=== PATIENT | female | born 1960 | race Caucasian/White ===

== ENCOUNTER 2024-01-11 12:30 | Inpatient (IN) | payer BC, MEDICAID ==
[~2024-01-11] VITALS: Ht 147.3 cm; Wt 65.4 kg
[~2024-01-11 12:30] MED LIST: ONDA-144 PO; TRAM-297 PO
[2024-01-11] MEDS: ASPirin 325 MG TAB PO ONE (14:45)
--- NOTE | 2024-01-11 15:15 | ED.PDOC ---
HPI Comments 62-year-old female patient with past medical history of hypertension, AAA, gastritis, moderate AR presented with complaints of chest pain and high blood pressure. She has been having chest pain for last five days, which she describes as radiating to the back and right shoulder, but for last two days pain became severe. She describes pain as chest tightness, not increased on inspiration, mildly relieved by rest. Patient went to see PCP today, PCP's office patient's systolic blood pressure was 179 and was referred to the ED. patient is currently mentioning 6/10 chest pain. She denied any shortness of breath on rest but mentions she has been having fatigue after doing some physical work. Past medical history Hypertension, AAA, gastritis, moderate AR, plantar fasciitis, carpal tunnel syndrome, tarsal tunnel syndrome Medication history Lisinopril, tramadol, Percocet Past surgical history Gastric bypass, tummy tuck, cholecystectomy, partial hysterectomy, appendectomy Allergic history Dilaudid Social history Denied alcohol, smoking, marijuana, any other drugs intake Family history Noncontributory Review of system As mentioned in the HPI Examination General Appearance: Alert, Oriented X3, Cooperative, No acute distress HEENT: EOMI Respiratory: Clear to auscultation, Normal air movement Cardiovascular: Regular rate, Normal S1, Normal S2 Abdominal: Normal bowel sounds Extremities: No cyanosis, No edema, Normal pulses, No tenderness/swelling Skin: No rashes, No breakdown Neuro: Normal speech and tone Chief Complaint: Chest Pain Time Seen by MD: 14:03 Reviewed Notes: Nurses Notes, Medications, Allergies Allergies: Coded Allergies: Codeine (Verified Allergy, Unknown, 02/17/15) Penicillins (Verified Allergy, Unknown, 02/17/15) Hydromorphone (Verified Adverse Reaction, Mild, ITCHINESSS, 02/26/15) User: Gilberto Blevins RN Date: 02/20/15 04:00 Type: Nurse Notes PATIENT COMPLAINED OF ITCHINESS. PAGED HOSPITALIST AND RECEIVED ORDERS TO DC DILAUDID AND ORDER BENEDRYL 50MG. ADMINISTERED TO PATIENT. WILL CONTINUE TO MONITOR. Home Meds Reported Medications Ondansetron (Zofran) 4 Mg Tab, 1 TAB PO Q6HR, #20 TAB 02/18/15 Tramadol Hcl (Ultram) 50 Mg Tab, 1 TAB PO Q6HR, #30 TAB 02/18/15 Mode of Arrival: Ambulatory Was a procedure done? Was a procedure done?: No CP Differential Dx Differential Diagnosis: Other (Myocardial infarction, aortic dissection, chest wall pain, gastritis, musculoskeletal pain, pericarditis) Differential Diagnosis: HTN Essential, HTN Accelerated Differential Diagnosis: Aortic dissection, Chest Wall Pain, Costochondritis, Esophageal reflux/spasm, Gastritis, Myocardial Infarction, Pericarditis, Pneumonia, Pulmonary Embolus X-Ray, Labs, Meds, VS Vital Signs Date Time Temp Pulse Resp B/P (MAP) Pulse Ox O2 Delivery O2 Flow Rate FiO2 01/11/24 20:07 144/67 01/11/24 19:49 70 16 144/67 (92) 99 01/11/24 19:49 70 16 99 Room Air* 0 21 01/11/24 17:05 97.9 64 16 129/61 (83) 99 97.9 01/11/24 15:43 143/54 01/11/24 15:37 57 01/11/24 15:31 61 01/11/24 15:31 98.1 61 16 146/54 (84) 99 98.1 01/11/24 13:35 58 01/11/24 12:38 63 01/11/24 12:30 97.3 64 20 133/55 (81) 97 Lab Test 01/11/24 15:35 01/11/24 12:49 Range/Units Troponin I High Sensitivity 5 6 </=34 ng/L White Blood Count 6.1 4.4-10.8 10^3/uL Red Blood Count 4.43 4.0-5.20 10^6/uL Hemoglobin 14.1 12.2-16.2 g/dL Hematocrit 41.2 36.0-46.0 % Mean Corpuscular Volume 93.1 80.0-100.0 fL Mean Corpuscular Hemoglobin 32.0 28.0-32.0 pg Mean Corpuscular Hemoglobin Concent 34.3 32.0-36.0 g/dL Red Cell Distribution Width 13.8 11.8-14.3 % Platelet Count 309 140-450 10^3/uL Mean Platelet Volume 9.2 6.9-10.8 fL Neutrophils (%) (Auto) 53.0 37.0-80.0 % Lymphocytes (%) (Auto) 35.1 10.0-50.0 % Monocytes (%) (Auto) 7.1 0.0-12.0 % Eosinophils (%) (Auto) 4.3 0.0-7.0 % Basophils (%) (Auto) 0.5 0.0-2.0 % Neutrophils # (Auto) 3.2 1.6-8.6 10 ^3/uL Lymphocytes # (Auto) 2.1 0.4-5.4 10 ^3/uL Monocytes # (Auto) 0.4 0-1.3 10 ^3/uL Eosinophils # (Auto) 0.3 0-0.8 10 ^3/uL Basophils # (Auto) 0 0-0.2 10 ^3/uL Nucleated Red Blood Cells 0.2 % Sodium Level 137 136-145 mmol/L Potassium Level 4.8 3.5-5.1 mmol/L Chloride Level 105 98-107 mmol/L Carbon Dioxide Level 26 20-31 mmol/L Anion Gap 6 5-15 Blood Urea Nitrogen 24 H 9-23 mg/dL Creatinine 1.04 H 0.550-1.02 mg/dL Glomerular Filtration Rate Calc 60 >90 mL/min BUN/Creatinine Ratio 23.1 H 10.0-20.0 Serum Glucose 93 74-106 mg/dL Calcium Level 9.7 8.7-10.4 mg/dL Total Bilirubin 0.7 0.2-1.0 mg/dL Aspartate Amino Transferase (AST) 38 13-40 U/L Alanine Aminotransferase (ALT) 47 H 7-40 U/L Alkaline Phosphatase 157 H 46-116 U/L B-Type Natriuretic Peptide 9.95 0-100 pg/mL Total Protein 7.2 5.7-8.2 g/dL Albumin 4.4 3.2-4.8 g/dL Current Medications Medications (Trade) Dose Ordered Sig/Ana Route Start Time Stop Time Status Last Admin Aspirin 325 mg ONCE ONCE PO 01/11/24 14:45 01/11/24 14:46 DC 01/11/24 14:45 Nitroglycerin (Ntrostat Sublingual) 0.4 mg ONCE ONCE SL 01/11/24 14:45 01/11/24 14:46 DC 01/11/24 15:43 Acetaminophen/ Hydrocodone Bitart ([place] 5/325MG Tab) 1 tab ONCE ONCE PO 01/11/24 20:00 01/11/24 20:01 DC 01/11/24 20:04 Time of 1ST Reevaluation: 16:12 (Patient mentioned chest pain has improved, now its 02/28. Chest x-ray shows no widened mediastinum.Blood pressure in both arms were similar no differential blood pressure.) Reevaluation 1ST: Improved Patient Education/Counseling: Diagnosis, Treatment Family Education/Counseling: No Family Present Comments Patient presented with the chest pain radiating to the back. workup was init iated. Patient was given: Aspirin 325 mg once, 0.4 mg sublingual nitroglycerin Patient was complaining of severe headache. Head CT did not show any acute abnormalities And patient was given pain medication Patient has been observed in the ED adequate length of time to insure improvement/stability. patient was admitted to the medicine team for further evaluation and treatment of their presentation. All the reports of any imaging studies that were ordered by myself were reviewed by myself. Departure 1 Departure Time of Disposition: 14:59 Impression: Primary Impression: Chest pain Additional Impression: Hypertension Disposition: 09 ADMITTED INPATIENT Admit to: [facility] Condition: Guarded Critical Care Note Critical Care Time?: No Heart Score Heart Score: Heart Score Response (Comments) Value History Moderate Suspicious 1 EKG Normal 0 Age 45-64 1 Risk Factors 1 or 2 risk factors 1 Troponin Normal limit 0 Total 3 MARGO WOLFF RESIDENT Jan 11, 2024 15:15
[2024-01-11] MEDS: NITROGLYCERIN 0.4 MG SL TAB SL ONE (15:30)
[2024-01-11 15:32] LABS: Basophils # (auto) 0 10 ^3/uL (0-0.2); Basophils % (auto) 0.5 % (0.0-2.0); Eosinophils # (auto) 0.3 10 ^3/uL (0-0.8); Eosinophils % (auto) 4.3 % (0.0-7.0); Hematocrit 41.2 % (36.0-46.0); Hemoglobin 14.1 g/dL (12.2-16.2); Lymphocytes # (auto) 2.1 10 ^3/uL (0.4-5.4); Lymphocytes % (auto) 35.1 % (10.0-50.0); Mean Corpuscular Hgb Conc. 34.3 g/dL (32.0-36.0); Mean Corpuscular Volume 93.1 fL (80.0-100.0); Monocytes # (auto) 0.4 10 ^3/uL (0-1.3); Monocytes % (auto) 7.1 % (0.0-12.0); Neutrophils # (auto) 3.2 10 ^3/uL (1.6-8.6); Nucleated Red Blood Cells % 0.2 %; Platelet Count (auto) 309 10^3/uL (140-450); Red Blood Cells 4.43 10^6/uL (4.0-5.20); Red Cell Distribution Width 13.8 % (11.8-14.3); White Blood Cell 6.1 10^3/uL (4.4-10.8)
[2024-01-11 15:49] LABS: Alanine Aminotransferase 47 U/L (7-40); Albumin 4.4 g/dL (3.2-4.8); Alkaline Phosphatase 157 U/L (46-116); Anion Gap 6 (5-15); Aspartate Aminotransferase 38 U/L (13-40); BUN/Creatinine Ratio 23.1 (10.0-20.0); Blood Urea Nitrogen 24 mg/dL (9-23); Calcium 9.7 mg/dL (8.7-10.4); Carbon Dioxide 26 mmol/L (20-31); Chloride 105 mmol/L (98-107); Potassium 4.8 mmol/L (3.5-5.1); Sodium 137 mmol/L (136-145)
[2024-01-11 15:50] LABS: Bilirubin, Total 0.7 mg/dL (0.2-1.0); Total Protein 7.2 g/dL (5.7-8.2)
[2024-01-11 15:53] LABS: Glucose 93 mg/dL (74-106)
--- NOTE | 2024-01-11 16:07 | DVH ---
CHEST RADIOGRAPH Indication: chest pain Technique: Single frontal view of the chest was obtained Comparison: None FINDINGS: Lines and Tubes: None Lungs: No focal consolidation. Pleura: No effusion. No pneumothorax. Cardiomediastinal contours: Unremarkable Bones: No acute osseous abnormality. IMPRESSION: 1. No acute cardiopulmonary disease. HS:Y
[2024-01-11 19:49] VITALS: PULSE 70; RESP 16; O2SAT 99
[2024-01-11] MEDS: ACETAMINOPHEN 325 MG TAB PO ONE (19:53)
[2024-01-11] MEDS: HYDROcodone-ACET 5/325MG TAB PO ONE (20:04)
--- NOTE | 2024-01-11 20:51 | DVH ---
Procedure: CT HEAD WITHOUT CONTRAST Study Date and Requested Time: 01/11/2024 08:21 PM History: headache Comparison: None Dose: CTDI: 51.85 mGy DLP: 918.28 mGycm Technique: Multiplanar images obtained through the brain without intravenous contrast. Findings: [id number] frontal lobe predominant brain atrophy with associated mild prominence of the extra- axial CSF space. Mild chronic small vessel ischemic changes. No hemorrhages, masses, mass effect, midline shift, herniation or cytotoxic edema following a large v ascular territory. No intra-axial or extra-axial fluid collections. No evidence of hydrocephalus. The basal cisterns are patent. The pituitary gland, sella and parasellar regions are unremarkable. The cerebellar tonsils are in nor mal position. The cerebellum is unremarkable. The orbits and globes are unremarkable. The paranasal sinuses and mastoids are clear. There are no wo rrisome calvarial lesions. 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 Impression: No evidence of acute intracranial abnormality.
[2024-01-11] MEDS ORDERED: ACETAMINOPHEN 325 MG TAB PO PRN (22:00)
[2024-01-11] MEDS ORDERED: NITROGLYCERIN 0.4 MG SL TAB SL PRN (22:00)
[2024-01-11] MEDS ORDERED: MORPHINE SULFATE INJ 2 MG/ml SYRG IV PRN (22:00)
[2024-01-11 22:57] VITALS: PULSE 64
[2024-01-11] MEDS: SODIUM CHLORIDE 0.9% 1,000 ML IV SCH (22:57)
[2024-01-11] MEDS: ONDANSETRON HCL 4 MG/2 ML VIAL IV PRN (23:35)
[2024-01-11] MEDS: MORPHINE SULFATE INJ 2 MG/ml SYRG IV PRN (23:37)
[2024-01-11] MEDS: IOHEXOL 350 MG/ML 100ML IJ ONE (23:39)
[2024-01-12] VITALS (10 sets, daily range): BP systolic 138–166; BP diastolic 51–71; PULSE 52–85; RESP 16–20; TEMP 97.6–98.2; O2SAT 95–100
--- NOTE | 2024-01-12 00:39 | DVH ---
Exam: CT CT ANGIO ABD AORTA W RUN OFF History: abdominal aneurysm Comparison Study: None available at time of dictation. Technique: Multidetector spiral CT of the abdomen and pelvis was performed from lung bases to pubic s ymphysis. Intravenous contrast was administered during this examination. Portal venous imaging was obtained. Axial, coronal and sagittal multiplanar reformats were performed by the technologist on a separate workstation. Radiation Dose : 1. Abdomen/Pelvis: CTDIvol 9.3 mGy, DLP 1180 mGy*cm. Findings: Lung Bases: No acute or significant lung base finding. Normal heart size. No pleural or pericardial effusion. Liver: The liver is normal in size. No focal lesions. Normal hepatic vascular enhancement. Gallbladder and Biliary Tree: Gallbladder is surgically absent. Spleen: Unremarkable Pancreas: The pancreas is normal in appearance without focal lesions or abnormal enhancement. Adrenal Glands: Unremarkable Kidneys: Kidneys demonstrate normal symmetric enhancement without focal lesions, calculi or hydroneph rosis. Bladder: Unremarkable Bowel: Surgical changes of the stomach. Small bowel and colon are normal in caliber and distribution. The appendix is not visualized; however, no secondary findings of acute appendicitis identified. Ascites: Absent Lymphadenopathy: No mesenteric, retroperitoneal or periportal lymphadenopathy. Abdominal Wall and Mesentery: Unremarkable. Vasculature: Infrarenal abdominal aortic saccular aneurysm measuring 2.9 cm with associated mural thr ombus. The bilateral lower extremity runoff demonstrates no significant stenosis or occlusion up to t he level of the ankles. The vasculature distal to this point is poorly evaluated due to contrast bolu s timing. Limited evaluation of the vasculature of the level of the right knee due to streaking artif act. Pelvic Organs: Unremarkable Musculoskeletal: No aggressive focal bony lesions, acute fractures or dislocation. Status post total right knee arthroplasty with intact appearing orthopedic hardware. IMPRESSION: Infrarenal saccular abdominal aortic aneurysm measuring up to 2.9 cm with associated mural thrombus. No evidence of contrast extravasation into the mural thrombus. No periaortic inflammatory changes.
--- NOTE | 2024-01-12 02:17 | DVHHPRES ---
History of Present Illness Resident Creating Document: JOHNNY YANG RESIDENT Reason for Visit: chest pain and headaches History of Present Illness 63-year-old female patient with past medical history of abdominal aortic aneurysm, hypertension who presents to the ER with chest pain and severe headache for evaluation. The chest pain began 5 days ago, initially described as 10/10 in intensity. Over the subsequent days the pain has progressively decreased and is now rated as 3/10 intensity. She describes the pain as sharp, type and radiating to the back and right shoulder. Not worsened by inspiration. The pain slightly improved with rest and has been partially relieved by aspirin and nitroglycerin. The patient denies shortness of breath, palpitations or syncope but reports fatigue. 2 days ago the chest pain basically worsened in severity prompting further evaluation. She also describes a severe headache 10/10 intensity, consistent with her history of migraines. The headache has not been associated with neurological deficits or visual changes. On admission the patient's blood pressure was 166/67 mmHg but it has since stabilized in the 140s with management. Troponins were negative chest x-ray were negative CT scan was negative. CT angiogram of the chest identified an infrarenal saccular abdominal aortic aneurysm measuring 2.9 cm with an associated thrombus but no evidence of dissection, periaortic inflammation or contrast extravasation. Past Surgical History: Other Family History: None Smoke: No ALCOHOL: none Drugs: None Domestic Violence: Neg Review of Systems Review of Systems Constitutional: No: Fever, Chills, Sweats, Weakness, Malaise, Other Eyes: No: Pain, Vision change, Conjunctivae inflammation, Eyelid inflammation, Other, Redness ENT: No: Ear pain, Ear discharge, Nose pain, Nose discharge, Nose congestion, Mouth pain, Mouth swelling, Throat pain, Throat swelling, Other Respiratory: No Wheezing, Hemoptysis, Pleuritic Pain, Sputum, Wheezing, Other Cardiovascular: Yes: Chest pain 3/10 No: Orthopnea, Paroxysmal Noc. Dyspnea, Edema, Lt Headedness, Other Gastrointestinal: No: Nausea, Vomiting, Abdominal Pain, Diarrhea, Constipation, Melena, Hematochezia, Other Musculoskeletal: No: other, neck pain, shoulder pain, arm pain, back pain, hand pain, leg pain, foot pain Neurological:; severe headaches 10/10 No: Weakness, Numbness, Incoordination, Change in speech, Confusion, Seizures Allergies: Coded Allergies: Codeine (Verified Allergy, Unknown, 02/17/15) Penicillins (Verified Allergy, Unknown, 02/17/15) Hydromorphone (Verified Adverse Reaction, Mild, ITCHINESSS, 02/26/15) User: Gilberto Blevins RN Date: 02/20/15 04:00 Type: Nurse Notes PATIENT COMPLAINED OF ITCHINESS. PAGED HOSPITALIST AND RECEIVED ORDERS TO DC DILAUDID AND ORDER BENEDRYL 50MG. ADMINISTERED TO PATIENT. WILL CONTINUE TO MONITOR. Medications Current Medications Medications Dose Ordered Sig/Ana Route Start Time Stop Time Status Last Admin Dose Admin Sodium Chloride 1,000 ml @ 60 mls/hr [id number] IV 01/11/24 22:00 01/11/24 22:57 60 MLS/HR Ondansetron HCl 4 mg Q4HP PRN IV 01/11/24 22:00 01/11/24 23:35 4 MG Acetaminophen 650 mg Q6HP PRN PO 01/11/24 22:00 Morphine Sulfate 2 mg Q4HPRN PRN IV 01/11/24 22:00 01/11/24 23:37 2 MG Nitroglycerin 0.4 mg Q5MINP PRN SL 01/11/24 22:00 Morphine Sulfate 2 mg Q30M PRN IV 01/11/24 22:00 Exam Vital Signs Vital Signs Date Time Temp Pulse Resp B/P (MAP) Pulse Ox O2 Delivery O2 Flow Rate FiO2 01/12/24 00:38 97.8 85 16 166/67 (100) 100 97.8 01/12/24 00:00 Room Air* 0 21 Exam Examination General Appearance: Alert, Oriented X3, Cooperative, severe acute distress HEENT: EOMI Respiratory: Clear to auscultation, Normal air movement Cardiovascular: Regular rate, Normal S1, Normal S2 Abdominal: Normal bowel sounds Extremities: No cyanosis, No edema, Normal pulses, No tenderness/swelling Skin: No rashes, No breakdown Neuro: Normal gait, Normal speech, Strength at 5/5 X4 ext, Normal tone, Sensation intact, Cranial nerves 3-12 NL, Reflexes 2+ Psych/Mental Status: Mental status NL, Mood NL Labs/Xrays Labs Test 01/11/24 15:35 01/11/24 12:49 Range/Units Troponin I High Sensitivity 5 </=34 ng/L White Blood Count 6.1 4.4-10.8 10^3/uL Red Blood Count 4.43 4.0-5.20 10^6/uL Hemoglobin 14.1 12.2-16.2 g/dL Hematocrit 41.2 36.0-46.0 % Mean Corpuscular Volume 93.1 80.0-100.0 fL Mean Corpuscular Hemoglobin 32.0 28.0-32.0 pg Mean Corpuscular Hemoglobin Concent 34.3 32.0-36.0 g/dL Red Cell Distribution Width 13.8 11.8-14.3 % Platelet Count 309 140-450 10^3/uL Mean Platelet Volume 9.2 6.9-10.8 fL Neutrophils (%) (Auto) 53.0 37.0-80.0 % Lymphocytes (%) (Auto) 35.1 10.0-50.0 % Monocytes (%) (Auto) 7.1 0.0-12.0 % Eosinophils (%) (Auto) 4.3 0.0-7.0 % Basophils (%) (Auto) 0.5 0.0-2.0 % Neutrophils # (Auto) 3.2 1.6-8.6 10 ^3/uL Lymphocytes # (Auto) 2.1 0.4-5.4 10 ^3/uL Monocytes # (Auto) 0.4 0-1.3 10 ^3/uL Eosinophils # (Auto) 0.3 0-0.8 10 ^3/uL Basophils # (Auto) 0 0-0.2 10 ^3/uL Nucleated Red Blood Cells 0.2 % Sodium Level 137 136-145 mmol/L Potassium Level 4.8 3.5-5.1 mmol/L Chloride Level 105 98-107 mmol/L Carbon Dioxide Level 26 20-31 mmol/L Anion Gap 6 5-15 Blood Urea Nitrogen 24 H 9-23 mg/dL Creatinine 1.04 H 0.550-1.02 mg/dL Glomerular Filtration Rate Calc 60 >90 mL/min BUN/Creatinine Ratio 23.1 H 10.0-20.0 Serum Glucose 93 74-106 mg/dL Calcium Level 9.7 8.7-10.4 mg/dL Total Bilirubin 0.7 0.2-1.0 mg/dL Aspartate Amino Transferase (AST) 38 13-40 U/L Alanine Aminotransferase (ALT) 47 H 7-40 U/L Alkaline Phosphatase 157 H 46-116 U/L B-Type Natriuretic Peptide 9.95 0-100 pg/mL Total Protein 7.2 5.7-8.2 g/dL Albumin 4.4 3.2-4.8 g/dL Assessment/Plan Assessment/Plan #Chest pain rule out ACS, rule out aortic dissection -CT angio was negative for aortic dissection,, troponins negative. Therefore likely musculoskeletal -continue aspirin for vascular protection -monitor blood pressure closely , occult blood pressure less than 130/80 mmHg -pain control with acetaminophen #Abdominal aortic aneurysm (stable, 2.9 cm) -no evidence of rupture. However the presence of thrombus increases the risk of embolization. -consider repeat CT scan/ultrasound in 6-12 months to monitor for progression -referral to vascular surgery for further assessment if aneurysm and large more than 5 cm or symptomatic. #Severe headache likely migraine/hypertensive urgency Acetaminophen 650 mg p.o. Morphine p.r.n. #Hypertension -Elevated blood pressure contributes to vascular risk, including aneurysm progression -Optimize antihypertensive regimen -Consider starting a beta-marcos or ARB's -Goal blood pressure less than 130/80 -Monitor renal function and electrolytes regularly given her vascular history #Elevated alkaline phosphatase, mild elevation -monitor # overweight, BMI 29.4 kilograms/m2 Lifestyle modification counseling, encourage improvement in dietary habits and physical activity Case discussed with Dr. Guevara Goals of care discussed with the patient for 43 minutes Code status: Full code Plan discussed with: Patient My Orders Orders - JOHNNY YANG RESIDENT Procedure Category Date Status Time Admit ADMIT 01/11/24 Transmitted 21:57 Allergies JOAQUIM 01/11/24 In Process 21:57 Code Status CODE 01/11/24 Transmitted 21:57 2 Gm Sodium Diet DIET 01/12/24 Transmitted Breakfast Sodium Chloride 0.9% PHA 01/11/24 In Process 22:00 Ondansetron Hcl PHA 01/11/24 In Process (Zofran) 22:00 Complete Blood Count LAB 01/12/24 Logged 04:00 Comprehensive LAB 01/12/24 Logged Metabolic Panel 04:00 Cardiac DIET 01/12/24 Transmitted Diet-2gna,Lofat,Lochol Breakfast Echo 2d Mode Cardiac US 01/11/24 Logged DOP 21:57 Acetaminophen Tablet PHA 01/11/24 In Process (Tylenol Tablet) 22:00 Morphine Sulfate PHA 01/11/24 In Process Injection 22:00 Nitroglycerin PHA 01/11/24 In Process Sublingual (Ntrostat 22:00 Morphine Sulfate PHA 01/11/24 In Process Injection 22:00 Oxygen By Nasal RT 01/11/24 Transmitted Cannula 21:57 Stat Ekg For Chest [facility] 01/11/24 In Process Pain 21:57 Notify Of Changes [facility] 01/11/24 In Process From Base 21:57 Electronic Warfare Specialist For [facility] 01/11/24 In Process 24 Hours 21:57 Emergency Dysrhythmia [facility] 01/11/24 In Process Protocol 21:57 Rhythm Strips Once [facility] 01/11/24 In Process Every Shift 21:57 Ct Angio Abd Aorta W CT 01/11/24 Resulted Run Off 23:15 Echo 2d Mode Cardiac US 01/11/24 Logged DOP 23:15 Date of Service: Jan 11, 2024 Billing Provider: DALIA GUEVARA MD Common Visit Codes: [id number] INP/OBS CARE (HIGH) JOHNNY YANG RESIDENT Jan 12, 2024 02:17 DALIA GUEVARA MD Jan 12, 2024 08:28
[2024-01-12 03:27] LABS: Urine Bacteria None Seen /hpf (None Seen)
[2024-01-12 03:31] LABS: Urine Blood Negative /uL (Negative); Urine Clarity Clear (Clear); Urine Protein, UAD Negative (Negative); Urine Specific Gravity 1.042 (1.001-1.035); Urine Urobilinogen Normal (Negative); Urine WBC <1 /hpf (0 - 5)
[2024-01-12] MEDS: MORPHINE SULFATE 4 MG/ML SYR/VIAL ONE (03:53)
[2024-01-12 04:02] LABS: Urine Color STRAW (Yellow)
[2024-01-12 06:55] LABS: Basophils # (auto) 0 10 ^3/uL (0-0.2); Basophils % (auto) 0.4 % (0.0-2.0); Eosinophils # (auto) 0.2 10 ^3/uL (0-0.8); Eosinophils % (auto) 2.5 % (0.0-7.0); Hematocrit 37.5 % (36.0-46.0); Hemoglobin 12.6 g/dL (12.2-16.2); Lymphocytes % (auto) 28.9 % (10.0-50.0); Mean Corpuscular Hemoglobin 31.7 pg (28.0-32.0); Mean Corpuscular Hgb Conc. 33.6 g/dL (32.0-36.0); Mean Corpuscular Volume 94.5 fL (80.0-100.0); Monocytes # (auto) 0.5 10 ^3/uL (0-1.3); Monocytes % (auto) 6.8 % (0.0-12.0); Neutrophils # (auto) 4.2 10 ^3/uL (1.6-8.6); Neutrophils % (auto) 61.4 % (37.0-80.0); Platelet Count (auto) 259 10^3/uL (140-450); Red Blood Cells 3.97 10^6/uL (4.0-5.20); Red Cell Distribution Width 13.5 % (11.8-14.3); White Blood Cell 6.8 10^3/uL (4.4-10.8)
[2024-01-12 07:01] LABS: Alanine Aminotransferase 39 U/L (7-40); Albumin 3.9 g/dL (3.2-4.8); Alkaline Phosphatase 130 U/L (46-116); Anion Gap 7 (5-15); Aspartate Aminotransferase 28 U/L (13-40); Bilirubin, Total 0.6 mg/dL (0.2-1.0); Calcium 9.1 mg/dL (8.7-10.4); Carbon Dioxide 24 mmol/L (20-31); Chloride 111 mmol/L (98-107); Glucose 93 mg/dL (74-106); Potassium 4.2 mmol/L (3.5-5.1); Sodium 142 mmol/L (136-145); Total Protein 6.4 g/dL (5.7-8.2)
[2024-01-12 07:10] LABS: BUN/Creatinine Ratio 14.7 (10.0-20.0); Blood Urea Nitrogen 11 mg/dL (9-23)
[2024-01-12] MEDS: NIFEdipine ER 30 MG TAB PO ONE (08:30)
[2024-01-12] MEDS: ATORVASTATIN 20 MG TAB PO ONE (08:30)
[2024-01-12 08:49] LABS: Amphetamine Screen, Urine Neg (NEGATIVE); Barbiturate Scree,Urine Neg (NEGATIVE); Benzodiazephine Screen, Urine Neg (NEGATIVE); Cocaine Screen, Urine Neg (NEGATIVE); Opiate Scree,Urine Neg (NEGATIVE)
[2024-01-12 08:50] LABS: Cannabinoid Screen, Urine Neg (NEGATIVE); Phencyclidine Screen, Urine Neg (NEGATIVE)
[2024-01-12] MEDS: PROPRANOLOL HCL 20 MG TAB PO SCH (10:00)
[2024-01-12] MEDS ORDERED: CARVEDILOL 3.125 MG TAB PO SCH (10:00)
[2024-01-12] MEDS: OXYCODONE W/ ACETAMINOPHEN 5/325MG TABLET PO PRN (15:20)
[2024-01-12] MEDS ORDERED: PERCOT PO (20:30)
[2024-01-12] MEDS: CARVEDILOL 3.125 MG TAB PO SCH (21:47)
--- NOTE | 2024-01-12 22:10 | DVHPNRES ---
Progress Note Date Seen: Jan 12, 2024 Resident Creating Document: KIERRA CRONIN RESIDENT Has the PT tested + for MRSA If YES, has PT been informed?: No Medical Necessity Reason Pt with a Central, PICC or Fol: No Subjective Review of Systems This is a 63-year-old female patient with a pmhx significant for abdominal aortic aneurysm( diagnosed in 2008), hypertension ( not compliant with her meds) and COVID who presents to the ER with chest pain and severe headache for evaluation. The pain was so severe that it woke her up from her sleep. The chest pain [facility] It was initially described as 10/10 in intensity. Over the subsequent days, the pain had progressively decreased and is now rated as 3/10 intensity. She describes the pain as sharp, type and radiating to the back and right shoulder. Not worsened by inspiration. The pain slightly improved with rest and has been partially relieved by aspirin and nitroglycerin. The patient denies shortness of breath, palpitations or syncope but reports fatigue. Two days ago the chest pain basically worsened in severity prompting further evaluation. She also described persistent headache consistent. The headache has not been associated with neurological deficits or visual changes. On admission the patient's bp: pphr952/67 mmHg. Troponins were negative chest x- ray were negative, and CT scan was negative. CT angiogram of the chest identified an infrarenal saccular abdominal aortic aneurysm measuring 2.9 cm with an associated thrombus but no evidence of dissection, periaortic inflammation or contrast extravasation. Of note, the patient mentioned that when the aneurysm was forced discovered the side was 2.7. Past Surgical History: right thyroidectomy 2016,patholgy: benign Family History: None Smoke: 5 dharmesh ALCOHOL: none Drugs: None Domestic Violence: Neg Constitutional: Denies fever no chil; but feeling of malaise HEENT: Headache, no Visual changes ear pain, ear discharges, conjunctivitis, nasal discharge throat pain Cardiovascular: Denies chest pain, palpitation, orthopnea, PND, or pedal edema Respiratory: Denies shortness of breath, cough cough, sputum production, hemoptysis, GI: Denies abdominal pain, nausea, vomiting, diarrhea, hematemesis, hematochezia, : Denies frequency, urgency, hematuria, No pulsating masses Endocrine: Denies unintentional weight gain or weight loss, feeling of hot flashes, Sudhakar: Denies easy bruising, bleeding disorders, epistaxis Musculoskeletal: Spinal /back pains. No muscle aches Psych: No evidence of depression, ryan, suicidal ideation Objective vital signs Vital Sign Date Time Temp Pulse Resp B/P (MAP) Pulse Ox O2 Delivery O2 Flow Rate FiO2 01/12/24 20:31 60 18 138/57 01/12/24 14:00 98.0 97 98.0 01/12/24 08:00 Room Air* 0 21 medications Current Medications Medications Dose Ordered Sig/Ana Route Start Time Stop Time Status Last Admin Dose Admin Ondansetron HCl 4 mg Q4HP PRN IV 01/11/24 22:00 01/11/24 23:35 4 MG Acetaminophen 650 mg Q6HP PRN PO 01/11/24 22:00 Morphine Sulfate 2 mg Q4HPRN PRN IV 01/11/24 22:00 01/12/24 20:31 2 MG Nitroglycerin 0.4 mg Q5MINP PRN SL 01/11/24 22:00 Morphine Sulfate 2 mg Q30M PRN IV 01/11/24 22:00 Nifedipine 30 mg DAILY PO 01/13/24 10:00 Atorvastatin Calcium 80 mg HS PO 01/13/24 22:00 Oxycodone/ Acetaminophen 2 tab Q6HP PRN PO 01/12/24 13:30 01/12/24 15:20 2 TAB Carvedilol 6.25 mg Q12HR PO 01/12/24 22:00 Examination General examination- Mild acute distress HEENT: PEERLA, no acute nasal discharge Chest: S1-S2 audible, rate and rhythm regular, no murmur Lung: CTAB, no wheeze or rhonchi Abdomen: Nondistend, BS+, nontenderness, no organomegaly Musculoskeletal: Spinal tenderness, generalized body tenders Lower extremity: no leg edema Neurological: cranial nerves intact, no acute dysarthria or dysphagia Psychiatry-- Normal mood and affect Skin- no acute rash or purpura laboratory and microbiology Laboratory Tests 01/12/24 06:13 Test 01/12/24 06:13 Range/Units Serum Glucose 93 74-106 mg/dL Problem List/Assessment/Plan Problem List/Assessment/Plan Chest pain rule out ACS --> History of abdominal aortic aneurysm increasing in size -CT angio was negative for aortic dissection, troponins negative. likely musculoskeletal -continue aspirin for vascular protection -monitor blood pressure closely , occult blood pressure less than 130/80 mmHg Hypertension Urgency Blood pressure:166/67--> 133/57 Goal: SBP< 130/80 Monitor blood pressure closely Nifedipine 30mg daily Carvediol 6.25mg BID We will add nifedipine 30 mg tonight as the BP is still elevated Monitor blood pressure if he does not go down by tomorrow morning then been well do nifedipine 90 mg daily Severe headache likely migraine -->Acetaminophen 650 mg p.o. --> the headache my be contributing to the elevated BP Abdominal aortic aneurysm --> Very important to control the blood pressure --> No evidence of dissection Herniated disc with constant pain -->pain control morphine (initially) --> pain medication --> takes Percocet 10 mg daily Obesity --> BMI: 30 --> Will address healthy lifestyle prior to discharge Goal of care discussed for more than 25 minute Case and plan discussed with Plan discussed with: Patient, Spouse My Orders My Orders Orders - KIERRA CRONIN Procedure Category Date Status Time Oxycodone W/ Acet PHA 01/12/24 In Process 5/325mg Tab (Percocet 13:30 Carvedilol Tablet PHA 01/12/24 In Process (Coreg Tablet) 22:00 Date of Service: Jan 12, 2024 Billing Provider: AMADEO SMITH MD Common Visit Codes: 37001-[id number] INP/OBS CARE(HIGH) KIERRA CRONIN Jan 12, 2024 22:10 AMADEO SMITH MD Jan 13, 2024 09:12
[2024-01-13] MEDS: NIFEdipine ER 30 MG TAB PO ONE (00:21)
[2024-01-13 01:00] VITALS: BP 124/62; PULSE 53; RESP 18; TEMP 97.5; O2SAT 96
--- NOTE | 2024-01-13 03:48 | ECG ---
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
--- NOTE | 2024-01-13 03:49 | ECG ---
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
[2024-01-13 05:00] VITALS: BP 139/61; PULSE 54; RESP 18; TEMP 97.8; O2SAT 95
[2024-01-13 08:00] VITALS: PULSE 51; PULSE 65; RESP 18; O2SAT 98
[2024-01-13] MEDS: NIFEdipine ER 30 MG TAB PO SCH (08:58)
[2024-01-13 09:00] VITALS: BP 138/56; PULSE 60; RESP 18; TEMP 98; O2SAT 98
[2024-01-13 12:38] VITALS: BP 108/58; PULSE 55; RESP 18; TEMP 97.3; O2SAT 98
[2024-01-13] MEDS ORDERED: CARV-214 PO (13:07)
[2024-01-13] MEDS ORDERED: NIFE1TAB31 PO (13:07)
[2024-01-13] MEDS ORDERED: ATOR20TA50 PO (13:07)
[2024-01-13 13:45] VITALS: BP 108/58; PULSE 55; RESP 18; TEMP 97.3; O2SAT 98
--- NOTE | 2024-01-13 14:05 | DVHDSRES ---
Discharge Summary Date of Admission Resident Creating Document: JOSIAH FONSECA RESIDENT Jan 11, 2024 at 21:57 Date of Discharge: Jan 13, 2024 Admitting Diagnosis Hypertensive urgency Labs/Diagnostic Data: Laboratory Results Test 01/12/24 06:13 01/12/24 03:16 01/11/24 15:35 01/11/24 12:49 White Blood Count 6.8 10^3/uL (4.4-10.8) Red Blood Count 3.97 10^6/uL (4.0-5.20) Hemoglobin 12.6 g/dL (12.2-16.2) Hematocrit 37.5 % (36.0-46.0) Mean Corpuscular Volume 94.5 fL (80.0-100.0) Mean Corpuscular Hemoglobin 31.7 pg (28.0-32.0) Mean Corpuscular Hemoglobin Concent 33.6 g/dL (32.0-36.0) Red Cell Distribution Width 13.5 % (11.8-14.3) Platelet Count 259 10^3/uL (140-450) Mean Platelet Volume 8.4 fL (6.9-10.8) Neutrophils (%) (Auto) 61.4 % (37.0-80.0) Lymphocytes (%) (Auto) 28.9 % (10.0-50.0) Monocytes (%) (Auto) 6.8 % (0.0-12.0) Eosinophils (%) (Auto) 2.5 % (0.0-7.0) Basophils (%) (Auto) 0.4 % (0.0-2.0) Neutrophils # (Auto) 4.2 10 ^3/uL (1.6-8.6) Lymphocytes # (Auto) 2.0 10 ^3/uL (0.4-5.4) Monocytes # (Auto) 0.5 10 ^3/uL (0-1.3) Eosinophils # (Auto) 0.2 10 ^3/uL (0-0.8) Basophils # (Auto) 0 10 ^3/uL (0-0.2) Nucleated Red Blood Cells 0.0 % Sodium Level 142 mmol/L (136-145) Potassium Level 4.2 mmol/L (3.5-5.1) Chloride Level 111 mmol/L (98-107) Carbon Dioxide Level 24 mmol/L (20-31) Anion Gap 7 (5-15) Blood Urea Nitrogen 11 mg/dL (9-23) Creatinine 0.75 mg/dL (0.550-1.02) Glomerular Filtration Rate Calc 89 mL/min (>90) BUN/Creatinine Ratio 14.7 (10.0-20.0) Serum Glucose 93 mg/dL (74-106) Calcium Level 9.1 mg/dL (8.7-10.4) Total Bilirubin 0.6 mg/dL (0.2-1.0) Aspartate Amino Transferase (AST) 28 U/L (13-40) Alanine Aminotransferase (ALT) 39 U/L (7-40) Alkaline Phosphatase 130 U/L (46-116) Total Protein 6.4 g/dL (5.7-8.2) Albumin 3.9 g/dL (3.2-4.8) Thyroid Stimulating Hormone (TSH) 1.33 uIU/mL (0.55-4.78) Urine Color Straw (Yellow) Urine Clarity Clear (Clear) Urine pH 5.0 (5.0-9.0) Urine Specific [place] 1.042 (1.001-1.035) Urine Protein Negative (Negative) Urine Ketones Negative (Negative) Urine Blood Negative /uL (Negative) Urine Nitrite Negative (Negative) Urine Bilirubin Negative (Negative) Urine Urobilinogen Normal mg/dL (Negative) Urine Leukocyte Esterase Negative /uL (Negative) Urine RBC 1 /hpf (0 - 4) Urine WBC <1 /hpf (0 - 5) Urine Squamous Epithelial Cells Few /hpf (<5) Urine Bacteria None seen /hpf (None Seen) Urine Glucose Normal mg/dL (Normal) Urine Opiates Screen Neg (NEGATIVE) Urine Fentanyl Screen Neg (NEGATIVE) Urine Barbiturates Screen Neg (NEGATIVE) Urine Phencyclidine Screen Neg (NEGATIVE) Urine Amphetamines Screen Neg (NEGATIVE) Urine Benzodiazepines Screen Neg (NEGATIVE) Urine Cocaine Screen Neg (NEGATIVE) Urine Cannabinoids Screen Neg (NEGATIVE) Troponin I High Sensitivity 5 ng/L (</=34) B-Type Natriuretic Peptide 9.95 pg/mL (0-100) Other Laboratory Tests 01/12/24 06:13 Brief Hx & Hospital Course: This is a 63-year-old female patient with a pmhx significant for abdominal aortic aneurysm( diagnosed in 2008), hypertension ( not compliant with her meds) and COVID who presents to the ER with chest pain and severe headache for evaluation. The pain was so severe that it woke her up from her sleep. The chest pain began 5 days prior to coming tot ED. It was initially described as 10/10 in intensity. Over the subsequent days, the pain had progressively decreased and is now rated as 3/10 intensity. She describes the pain as sharp, type and radiating to the back and right shoulder. Not worsened by inspiration. The pain slightly improved with rest and has been partially relieved by aspirin and nitroglycerin. The patient denies shortness of breath, palpitations or syncope but reports fatigue. Two days ago the chest pain basically worsened in severity prompting further evaluation. She also described persistent headache consistent. The headache has not been associated with neurological deficits or visual changes. On admission the patient's bp: read 166/67 mmHg. Troponins were negative chest x-ray were negative, and CT scan was negative. CT angiogram of the chest identified an infrarenal saccular abdominal aortic aneurysm measuring 2.9 cm with an associated thrombus but no evidence of dissection, periaortic inflammation or contrast extravasation. The patient mentioned that CT scan of the aorta was last year and the size was 2.7. Patient was started on Coreg 6.25 mg b.i.d. and nifedipine 60 mg p.o. q.d., heart rate came down to the 50s and blood pressure came down to the 100s. Physical examination as below: General examination- Mild acute distress HEENT: PEERLA, no acute nasal discharge Chest: S1-S2 audible, rate and rhythm regular, no murmur Lung: CTAB, no wheeze or rhonchi Abdomen: Nondistend, BS+, nontenderness, no organomegaly Musculoskeletal: Spinal tenderness Lower extremity: no leg edema Neurological: cranial nerves intact, no acute dysarthria or dysphagia Psychiatry-- Normal mood and affect Skin- no acute rash or purpura Discharge diagnosis: Hypertensive urgency Discharge plan: Patient will be DC home on continue home medications prescribed. Continue nifedipine 30 mg p.o. q.d., Coreg 3.125 mg p.o. b.i.d. Follow up in the clinic within the next week, try to arrange PCP Counseled on lifestyle modifications, low-salt diet, stress relieving activities, physical exercise, medical compliance Patient will recommended to bring blood pressure and heart rate diary for next PCP appointment. Patient verbalized understanding and agreed with this plan, we spent over 33 minutes explaining the plan. Operations or Procedures [place] [address] Ph: [phone] DIAGNOSTIC IMAGING Diagnostic Imaging Report : [id number] Signed PATIENT: HASEEB STANTON ACCT: [id number] UNIT: [id number] : 1960 LOC: ER ROOM / BED: / AGE / SEX: 63 / F ADM STATUS: REG ER SERVICE 1533 ORDERING PHYSICIAN: RHIANNON JARAMILLO MD PROCEDURE(s): CXR1 - CHEST XRAY 1 VIEW REASON: chest pain ORDER NUMBER(s): [id number], ACCESSION NUMBER(s): [id number] CHEST RADIOGRAPH Indication: chest pain Technique: Single frontal view of the chest was obtained Comparison: None FINDINGS: Lines and Tubes: None Lungs: No focal consolidation. Pleura: No effusion. No pneumothorax. Cardiomediastinal contours: Unremarkable Bones: No acute osseous abnormality. IMPRESSION: 1. No acute cardiopulmonary disease. HS:Y ATED BY: JOSIE COLLINS Jr., DO DICTATED DATE/TIME: 01/11/24 160 SIGNED BY: JOSIE COLLINS Jr., SIGNED DATE/TIME: 01/11/24 1605 CC: [place] [id number] Ph: [phone] DIAGNOSTIC IMAGING Diagnostic Imaging Report : [id number] Signed PATIENT: HASEEB STANTON ACCT: [id number] UNIT: [id number] : 1960 LOC: ER ROOM / BED: / AGE / SEX: 63 / F ADM STATUS: REG ER SERVICE 50 ORDERING PHYSICIAN: NGOZI PHILLIPS DO PROCEDURE(s): HWOCT - HEAD WITHOUT CONTRAST REASON: headache ORDER NUMBER(s): [id number], ACCESSION NUMBER(s): [id number] Procedure: CT HEAD WITHOUT CONTRAST Study Date and Requested Time: 01/11/2024 08:21 PM History: headache Comparison: None Dose: CTDI: 51.85 mGy DLP: 918.28 mGycm Technique: Multiplanar images obtained through the brain without intravenous contrast. Findings: Ptro-ij-zatuxcjl frontal lobe predominant brain atrophy with associated mild prominence of the extra-axial CSF space. Mild chronic small vessel ischemic changes. No hemorrhages, masses, mass effect, midline shift, herniation or cytotoxic edema following a large vascular territory. No intra-axial or extra-axial fluid collections. No evidence of hydrocephalus. The basal cisterns are patent. The pituitary gland, sella and parasellar regions are unremarkable. The cerebellar tonsils are in normal position. The cerebellum is unremarkable. The orbits and globes are unremarkable. The paranasal sinuses and mastoids are clear. There are no worrisome calvarial lesions. 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 Impression: No evidence of acute intracranial abnormality. ATED BY: MARISA DAVIS DO DICTATED DATE/TIME: 01/11/242048 SIGNED BY: MARISA DAVIS DO SIGNED DATE/TIME: 01/11/242048 CC: [place] [address] Ph: [phone] DIAGNOSTIC IMAGING Diagnostic Imaging Report : [id number] Signed PATIENT: HASEEB STANTON ACCT: [id number] UNIT: [id number] : 1960 LOC: [facility] ROOM / BED: [address] [place] [address] AGE / SEX: 63 / F ADM STATUS: ADM IN SERVICE 4050 ORDERING PHYSICIAN: JOHNNY YANG RESIDENT PROCEDURE(s): CTAAA - CT ANGIO ABD AORTA W RUN OFF REASON: abdominal aneurysm ORDER NUMBER(s): [id number], ACCESSION NUMBER(s): [id number] Exam: CT CT ANGIO ABD AORTA W RUN OFF History: abdominal aneurysm Comparison Study: None available at time of dictation. Technique: Multidetector spiral CT of the abdomen and pelvis was performed from lung bases to pubic symphysis. Intravenous contrast was administered during this examination. Portal venous imaging was obtained. Axial, coronal and sagittal multiplanar reformats were performed by the technologist on a separate workstation. Radiation Dose : 1. Abdomen/Pelvis: CTDIvol 9.3 mGy, DLP 1180 mGy*cm. Findings: Lung Bases: No acute or significant lung base finding. Normal heart size. No pleural or pericardial effusion. Liver: The liver is normal in size. No focal lesions. Normal hepatic vascular enhancement. Gallbladder and Biliary Tree: Gallbladder is surgically absent. Spleen: Unremarkable Pancreas: The pancreas is normal in appearance without focal lesions or abnormal enhancement. Adrenal Glands: Unremarkable Kidneys: Kidneys demonstrate normal symmetric enhancement without focal lesions, calculi or hydronephrosis. Bladder: Unremarkable Bowel: Surgical changes of the stomach. Small bowel and colon are normal in caliber and distribution. The appendix is not visualized; however, no secondary findings of acute appendicitis identified. Ascites: Absent Lymphadenopathy: No mesenteric, retroperitoneal or periportal lymphadenopathy. Abdominal Wall and Mesentery: Unremarkable. Vasculature: Infrarenal abdominal aortic saccular aneurysm measuring 2.9 cm with associated mural thrombus. The bilateral lower extremity runoff demonstrates no significant stenosis or occlusion up to the level of the ankles. The vasculature distal to this point is poorly evaluated due to contrast bolus timing. Limited evaluation of the vasculature of the level of the right knee due to streaking artifact. Pelvic Organs: Unremarkable Musculoskeletal: No aggressive focal bony lesions, acute fractures or dislocation. Status post total right knee arthroplasty with intact appearing orthopedic hardware. IMPRESSION: Infrarenal saccular abdominal aortic aneurysm measuring up to 2.9 cm with associated mural thrombus. No evidence of contrast extravasation into the mural thrombus. No periaortic inflammatory changes. ATED BY: SABAS DUARTE DO DICTATED DATE/TIME: 01/12/2435 SIGNED BY: SABAS DUARTE DO SIGNED DATE/TIME: 01/12/2435 CC: Condition at Discharge: Guarded Final Diagnosis/Problems List Hypertensive Urgency Severe headache likely migraine Abdominal aortic aneurysm, stable Chest pain ruled out ACS, likely costochondritis Degenerative spinal disc disease, Herniated disc Obesity Discharge Disposition: Home Discharge Instruct/Medications Diet: Cardiac 2g Na,low cholest Activity: No Restrictions, As Tolerated Follow Up/Referral: FU with PCP in [address] clinic Medications: continue home meds as prescribed continue coreg 3.125mg po bid continue nifedipine 30mg po qd Discharge Statement: "Patient was advised to return to the ER or call 911 if any headaches, dizziness, shortness of breath, chest pain, abdominal pain, bleeding, fevers, or worsening of medical condition. Patient was counseled about treatment plan, medications, possible side effects, patientverbalized understanding. All questions were answered to the best of my ability. This discharge took greater then 30 minutes in planning, reviewing documentation, counseling the patient, and discussing with other team members." ASSESSMENT ASSESSMENT Assessment hypertensive urgency, AAA JOSIAH FONSECA RESIDENT Jan 13, 2024 14:05
--- NOTE | 2024-01-13 17:58 | DVHSR ---
APPROVED REPORT EXAM: Two-dimensional and M-mode echocardiogram with Doppler and color Doppler. Blood Pressure: 138/56 mmHg INDICATION Chest Pain RISK FACTORS Height: 4' 10", Weight: 144 DIMENSIONS LVDd4.4 (3.8-5.7cm)LA (2D)3.2 (1.9-4.0cm)Aortic Root3.4 (2.0-3.7cm) LVDs3.2 (2.5-4.0cm)LA (MM) (1.9-4.0cm)Aortic Cusp Exc1.5 (1.5-2.0cm) EF (%) 55.0 (55-70%)Rt. Atrium3.5 (1.9-4.0cm)Asc. Aorta cm IVSd1.0 (0.7-1.1cm)RV (D) (1.8-2.4cm) PWd0.9 (0.7-1.1cm) Mitral Valve MitralMitral Stenosis E wave0.70m/sMV Mean GR.mmHg A wave1.00m/sMV Peak GR.mmHg E/A ratio0.72D MVAcm2 Aortic Valve Aortic ValveAortic Stenosis V10.90m/Edwige Mean GR.5mmHg V21.70m/Edwige Peak GR.13mmHg LVOT Diameter1.8 (1.8-2.4cm)Doppler AVA1.35cm2 AI P 1/2 Kqjz875.31ms Pulmonic Valve V20.80m/s Tricuspid Valve TR Velocity2.20m/s [id number] Conclusion MILD LVH AND MILD LV DIASTOLIC DYSFUNCTION LV EJECTION FRACTION IS 65% SLIGHTLY DILATED RV BUT NORMAL FUNCTION MILD AORTIC REGURGITATION GROSSLY NORMAL VALVES NO EFFUSION
[2024-01-13] MEDS ORDERED: CARVEDILOL 3.125 MG TAB PO SCH (22:00)
[2024-01-13] MEDS ORDERED: ATORVASTATIN 20 MG TAB PO SCH (22:00)
[2024-01-14] MEDS ORDERED: NIFEdipine ER 30 MG TAB PO SCH (10:00)
--- NOTE | 2024-01-14 10:27 | ECG ---
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
== END 2024-01-13 16:00 | disposition home or self-care (01) | DRG 54 ==
LOC: ER 12:30 → TELE 21:57 → TELE-E-ADS 01-12 19:14
PROVIDERS: ATTEND Internal Medicine
DX: G43.909 Migraine, unspecified, not intractable, without status migrainosus (principal); E66.9 Obesity, unspecified; M94.0 Chondrocostal junction syndrome [Tietze]; I71.40 Abdominal aortic aneurysm, without rupture, unspecified; I16.0 Hypertensive urgency; Z68.30 Body mass index [BMI] 30.0-30.9, adult; Z98.84 Bariatric surgery status; Z90.49 Acquired absence of other specified parts of digestive tract; Z90.711 Acquired absence of uterus with remaining cervical stump; Z88.0 Allergy status to penicillin; Z88.8 Allergy status to other drugs, medicaments and biological substances; Z79.899 Other long term (current) drug therapy
CPT/HCPCS: 36415; 70450; 71045; 75635; 80053; 80307; 81001; 83880; 84443; 84484; 85025; 93005; 93306; 96361; 96374; G0378; J2405